=== PATIENT | male | born 1960 | race African-American/Black ===

== ENCOUNTER → 2016-12-18 | Outpatient (CLI) | payer OTHER ==
--- NOTE | 2016-12-19 08:30 | KCIC ---
INDICATION: Chronic neck pain and left radiculopathy. Pain with flexion and extension. TECHNIQUE: Sagittal T1, sagittal T2, sagittal STIR, axial T2, and axial T2 gradient sequences are provided. No comparison is available. FINDINGS: There is 3 mm of anterolisthesis at C4-C5 and 2 mm of retrolisthesis at C5-C6 and C6-C7. There is no worrisome marrow lesion. There is minimal endplate edema which appears degenerative from C5-C6 through C7-T1. There is no cord signal abnormality. The cervicomedullary junction is unremarkable. Degenerative findings by individual level are as follows: C2-C3: There is no canal or foraminal compromise. C3-C4: Disc osteophyte complex and uncinate process spurring are noted, uncinate process spurring much greater on the right. There is also facet hypertrophy which is greater on the right. There is minimal canal stenosis, greater on the right. Midline AP diameter of the thecal sac is still 10 mm. There is right lateral recess narrowing and severe right foraminal narrowing. There is [id number] left foraminal narrowing. C4-C5: There is facet hypertrophy which is greater on the left. There is mild foraminal narrowing. There is no canal stenosis, midline AP diameter of the thecal sac 11 mm. C5-C6: Disc osteophyte complex and uncinate process spurring are noted. There is mild cord flattening but no definite cord hyperintensity confirmed in 2 planes. Midline AP diameter of the thecal sac is mildly narrowed to 9 mm. There is effacement of the ventral CSF column. There is [id number] bilateral foraminal narrowing. C6-C7: Disc osteophyte complex and uncinate process spurring are noted with [id number] bilateral foraminal narrowing. The midline AP diameter of the thecal sac is minimally narrowed to 10 mm. C7-T1: Disc osteophyte complex and uncinate process spurring are noted. There is facet hypertrophy as well. There is mild canal stenosis, midline AP diameter of the thecal sac-10 mm. Foraminal narrowing bilaterally is probably moderate to severe. The axial T2 gradient sequence is degraded by motion. IMPRESSION: Endplate degenerative changes along with uncinate process spurring and facet hypertrophy are noted throughout the cervical spine. Canal stenosis is greatest at C5-C6. Foraminal narrowing is greatest on the right at C3-C4 and bilaterally at C7-T1. Electronically signed by: Chirag Shell MD (12/19/2016 8:26 AM)
== END | disposition home or self-care (01) ==
LOC: KCIC MRI 18:05
DX: M48.02 Spinal stenosis, cervical region (principal); G89.29 Other chronic pain
CPT/HCPCS: 72141